=== PATIENT | male | born 1985 | race Caucasian/White ===

== ENCOUNTER → 2017-04-15 | Outpatient (CLI) | payer OTHER ==
--- NOTE | 2017-04-15 12:08 | REP ---
Left knee series: Five views. History: Pain with weightbearing Findings: Five views of the left knee demonstrate a normal fabella posterolaterally. Bones, joints, and soft tissues are unremarkable. Impression: Negative views of the left knee.
== END ==
LOC: M CLY 11:26
PROVIDERS: ATTEND Nurse Practitioner
DX: M25.562 Pain in left knee (principal)